=== PATIENT | female | born 1995 | race Caucasian/White ===

== ENCOUNTER → 2018-02-04 13:50 | Outpatient (CLI) | payer OTHER, SELFPAY ==
[2018-02-12 08:29] LABS: HPV APTIMA, High Risk Negative (Negative)
[2018-02-12 08:38] LABS: HPV Reflexed? YES, CHARGE PATIENT
== END ==
PROVIDERS: Visit Provider Obstetrics & Gynecology
DX: Z12.4 Encounter for screening for malignant neoplasm of cervix (principal)
CPT/HCPCS: 87624; 88175; G0145

== ENCOUNTER → 2020-02-28 15:05 | Outpatient (CLI) | payer OTHER, SELFPAY ==
[2020-02-28 16:28] LABS: Absolute Lymphocyte Count 1.51 X10^3/uL (0.83-4.51); Absolute Neutrophil Count 3.8 X10^3/uL (2.0-7.7); Basophil# 0.02 X10^3/uL; Basophil% 0.3 % (0-1); Eosinophil# 0.07 X10^3/uL; Eosinophils% 1.2 % (0-5); Hematocrit 36.5 % (37-47); Hemoglobin 11.8 g/dL (12.0-15.0); Lymphocyte # 1.51 X10^3/ul (4.0); Lymphocyte % 25.6 % (19-41); Mean Corp Hgb Conc 32.3 g/dL (32-36); Mean Corpuscular Hgb 27.3 pg (27.0-32.0); Mean Corpuscular Volume 84.5 fL (81-99); Mean Platelet Vol. 11.5 fl (6.2-12.0); Monocyte# 0.48 X10^3/uL; Monocyte% 8.1 % (0-10); NRBC Flagged by Analyzer 0 % (0-5); Neutrophil # 3.79 X10^3/uL (2.7-7.7); Neutrophil % 64.5 % (47-70); Platelet Count 260 K/mm3 (150-450); RBC Distribution Width CV 13.1 % (11.6-14.6); RBC Distribution Width SD 40.6 fl (35.1-43.9); Red Blood Count 4.32 M/mm3 (4.2-5.4); White Blood Count 5.9 K/mm3 (4.4-11.0)
[2020-02-28 16:54] LABS: Thyroid Stim Hormone (TSH) 2.05 uIU/mL (0.358-3.74)
[2020-02-29 09:18] LABS: HIV - WCH Non-Reactive (Nonreactive); Hepatitis B Surface Antigen Non-Reactive (Nonreactive); Hepatitis C Antibody Non-Reactive (Nonreactive); Rubella IgG Reactive (Nonreactive)
[2020-03-01 02:34] LABS: Prenatal RPR NONREACTIVE (NONREACTIVE)
[2020-03-02 03:07] LABS: Chlamydia By Nucleic Acid AMP Negative (Negative)
[2020-03-02 06:03] LABS: Gonococcus By Nucleic Acid AMP Negative (Negative)
== END ==
PROVIDERS: Visit Provider Obstetrics & Gynecology
DX: Z34.82 Encounter for supervision of other normal pregnancy, second trimester (principal)
CPT/HCPCS: 36415; 84443; 85025; 86703; 86762; 86803; 87340; 87491; 87591

== ENCOUNTER → 2020-06-29 09:41 | Outpatient (CLI) | payer OTHER, SELFPAY ==
[2020-06-29 10:25] LABS: Hematocrit 32.7 % (37-47); Hemoglobin 10.6 g/dL (12.0-15.0); Mean Corp Hgb Conc 32.4 g/dL (32-36); Mean Corpuscular Volume 89.6 fL (81-99); Platelet Count 255 K/mm3 (150-450); RBC Distribution Width CV 13.3 % (11.6-14.6); RBC Distribution Width SD 44.2 fl (35.1-43.9); Red Blood Count 3.65 M/mm3 (4.2-5.4); White Blood Count 7.3 K/mm3 (4.4-11.0)
[2020-06-29 10:30] LABS: Glucose Challenge Gest 1H 50g 57 mg/dL (70-140)
== END ==
PROVIDERS: Visit Provider Obstetrics & Gynecology
DX: Z34.82 Encounter for supervision of other normal pregnancy, second trimester (principal)
CPT/HCPCS: 36415; 82950; 85027

== ENCOUNTER → 2020-09-17 | Outpatient (CLI) | payer OTHER, SELFPAY ==
[2020-09-17 15:19] LABS: Mucous, Urine 0 SEEN /hpf (<or=2+); Red Blood Cells-Urine 0 SEEN /hpf (0-5); Squamous Epithelial Cells - UA 0 SEEN /hpf (5-10)
[2020-09-17 15:40] LABS: Color, Urine Yellow (Yellow); Glucose, Dipstick Normal (Normal); Ketone-Dipstick Negative (Negative); Leukocyte Esterase-Dipstick Negative /ul (Negative); Nitrite-Dipstick Negative (Negative); Occult Blood-Urine Negative /ul (Negative); Protein-Dipstick Negative (Negative); Urine Bilirubin Dipstick Negative (Negative); Urine Clarity Clear (Clear); Urine Urobilinogen Normal (Normal)
[2020-09-17 15:51] LABS: Bacteria 2+ /hpf (None Seen); White Blood Cells 0-5 SEEN /hpf (0-5)
== END | disposition home or self-care (01) ==
LOC: LABSPEC 15:15
PROVIDERS: Visit Provider Obstetrics & Gynecology
DX: N30.00 Acute cystitis without hematuria (principal)
CPT/HCPCS: 81001; 87086

== ENCOUNTER → 2020-09-26 | Outpatient (CLI) | payer OTHER, SELFPAY | END | disposition home or self-care (01) | LOC: LABSPEC 17:04 | PROVIDERS: PCP Family Medicine; Referring Provider Obstetrics & Gynecology; Visit Provider Obstetrics & Gynecology | DX: Z36.85 Encounter for antenatal screening for Streptococcus B (principal) | CPT/HCPCS: 87081 ==

== ENCOUNTER 2020-10-12 09:50 | Inpatient (IN) | payer OTHER, SELFPAY ==
[2020-10-12] VITALS (27 sets, daily range): BP systolic 114–144; BP diastolic 55–74; PULSE 73–130; TEMP 36.2–36.9; O2SAT 91–100; BMI 27.7
--- NOTE | 2020-10-12 10:13 | HP.PCM.OB_ITS ---
HPI - General General Date of Admission: 10/12/20 HPI Narrative VELIA SHAVER, is a 24 F G1 who presents at 39 weeks gestation in labor. [facility] Medical History (Updated 10/12/20 @ 15:[address] Bud Bond MD) Depression Home Medications ferrous sulfate [iron] 325 mg PO DAILY 10/12/20 [History Last Taken 10/11/20 21:00] prenat.vits,waldemar,[id number] [ Vitamin] 1 tab PO DAILY 10/12/20 [History Last Taken 10/11/20 21:00] Allergy/AdvReac Type Severity Reaction Status Date / Time amoxicillin Allergy Rash Verified 10/12/20 07:40 azithromycin [From Zithromax] Allergy Rash Verified 10/12/20 07:41 Penicillins Allergy Rash Verified 10/12/20 07:40 Family History Father Skin cancer Mother Skin cancer Surgical History [place] teeth removed Social History (System 10/02/20 @ 13:10 by Cristi Esparza) Smoking Status: Never smoker History 1 Elective abortions 0 Hx Para 0 Spontaneous abortions 0 Hx # Term Pregnancies 0 Ectopic pregnancies 0 Hx # Pregnancies 0 Multiple births 0 # of living children 1 NST FHR Rate Baby A Baseline: 10 Variability:: Moderate Accelerations:: 15 x 15 Decelerations:: None NST Reactive:: Yes FHR Category:: Category I Uterine Activity:: 2-3/10 Vital Signs Vital Signs Vital Signs: 10/12/20 07:28 Temperature 98.0 F Temperature Source Temporal Pulse Rate 77 Blood Pressure 118/72 BP Systolic 118 BP Diastolic 72 Weight Weight: 66.6 kg Body Mass Index (BMI) 27.7 Physical Exam Const alert, oriented x3 and no apparent distress HEENT normocephalic Resp normal respiratory effort, normal air movement and clear to auscultation bilaterally Cardio regular rate and regular rhythm GI normal to inspection, nondistended, normoactive bowel sounds, soft to palpation, non-tender and non-distended Inspection: gravid Narrative: /-2 per RN exam Labs Labs Labs: Blood Type A POSITIVE Antibody Screen NEGATIVE Hct 39.2 % (37-47) Hgb 12.7 g/dL (12.0-15.0) Rubella IgG Antibody Reactive (Nonreactive) Hep Bs Antigen Non-Reactive (Nonreactive) Neisseria gonorrhoeae DNA (FADI) Negative (Negative) HIV 1&2 Antibody Non-Reactive (Nonreactive) Glucose 1 Hr 50 gm 57 mg/dL (70-140) L ACOG ANTEPARTUM RECORD - HISTORY AND PHYSICAL (10/12/2020) Name: VELIA SHAVER History of this : This is a 24 year old [id number] presents at 39 wks + 0 days gestation. OB Physician: Kellie Hightower MD [place]'s Physician: KIMBERLI ...................................................................... : 1995 Age: 24 Address: [address] [place] [address] Phone: H) [phone] Insurance Carrier: MAURA DUDLEYO [id number] Emergency Contact: JAYLYNADELINA VACAROSSISABELBrian [phone] ...................................................................... Final KANDY: 10/19/20 By Ultrasound: 10 weeks 4 days PARITY: (G-Total Pregnancies P-Fullterm,Premature,Induced AB,Spont AB, Ectopics, Multiple,Living) KANDY CONFIRMATION: By LMP: 01/13/20 Initial Exam: 10/19/20 By First Ultrasound Exam: 10/20/20 Final KANDY: 10/19/20 OB PROBLEM LIST: Allergic to Azithromycin and PCNs! planned, encouraged class Declines genetic and carrier screening First trimester spotting Hx of depression, no past treatment. EPDS on 02/28/2020 = 7. Prefers NOT to have an epidural, but she is not opposed if one is needed Office childbirth class enc. 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 Illicit Drug Use - denies use of street drugs Sexual Activity - single sexual partner and Residence - lives with Place of - [place] Hours Worked - 40 hours per week Spouse-Sig Other Name - Charles Shaver Spouse-Sig Other Occupation - Sign Fabricator Spouse-Sig Other Phone No - [phone] Children Name(s) - [facility] 2018 (non-relative kinship, adopting) PRIOR DELIVERY HISTORY DEL DATE GEST LAB WT LB WT OZ TYPE ANES LABOR TX ANTEPARTUM FLOW CHART VISIT GE RTC FU F F DE U U DATE WK MD WKS HT PN HR M SS BP ED WT DE GL D EF ST __ ____ ___ __ __ ___ __ __ __ ___ __ __ __ ___ __ 21 Sep SHM 1 37 V + + 120/62 sl 152 tr - 3 50 -3 14 Sep SHM 1 36 V + + 122/82 0 150 - - 2+ 50 -3 07 Sep SHM 1 34 V + + 136/74 0 146 ne ne 2+ 50 -3 28 Aug 35 SHM 1 34 V + + 112/74 0 145 - - Aug SHM 2 33 V + + 112/74 0 146 - - Aug JM 2 32 V + + 128/50 - 142 - - August 19 JM 2 30 - + + 122/60 0 140 - - 10 August 17 JM 2 28 - + + 126/76 0 138 ne ne Jul 14 JM 4 24 - + + 130/82 0 132 - - Jun 08 CM 4 U+ + 112/62 0 128 09 May 07 SHM 4 15 + O 120/72 0 125 tr - 05 Apr 01 SHM 5 on US 110/56 0 119 - - ANTEPARTUM NOTE(S): Oct 10 2020: achy, uncomfortable Oct 03 2020: mild pelvic pressure Sep 26 2020: LARC, GBS today Sep 17 2020: Sl burn w/ urination, vaginal pain/soreness Sep 12 2020: cramping and RLP Aug 30 2020: doing well Aug 14 2020: No concerns expressed Jul 30 2020: Jun 29 2020: 1 HR GTT today May 31 2020: May 01 2020: feeling well, declines carrier screening and genetic testing Mar 27 2020: COMPREHENSIVE ANTEPARTUM NOTE(S): Oct 10 2020: More uncomfortable, achy. She is interested in membrane sweep. Reviewed FM, SROM, and labor. LMT Oct 10 2020: Poorly tolerate membrane stripping and exam aborted. Cervix very posterior today. Discussed elective IOL vs. expectant management. Pt opts for t he latter. Oct 03 2020: Velia is here for a PNV at 37 wks and 5 days. Good FM. No edema present. Denies ctx's/ cramping. Mild pelvic pressure. Cervix check today, pt states she was 2.5 cm at last visit. Oct 03 2020: Reviewed GBS neg. Consider stripping membranes at next visit if pt desires. Labor, FM precautions. Sep 26 2020: Velia is here for PNV. GBS today. LARC reviewed and declined. Form signed. States she is getting tired and ready for this baby to come out. Having good FM. No edema present. Urine neg/neg. LSS Sep 26 2020: Cervix MODERATE, MIDPOSITION. GBS obtained. Sep 17 2020: Velia is here for PNV/ problem visit. Pt called in this morning w/ complaints of burning w/ urination and vaginal pressure/ soreness. Pt states burning isn't always present and is very mild. Seemed to have started after she sneezed while urinating the other day. Vaginal pain increases w/ mvmt. Good FM. No edema present. Light headedness occasionally, pt pushing fluids. Long dip reveals tr ketones. Sep 17 2020: Reports external vulvar irritation, swelling and vaginal discomfort with dysuria. wet preop - neg clue/trich/yeast, pH < 4.5 Rx Macrobid for presumed UTI. Complete U/A, Ucx pending. Sep 12 2020: Velia is here for a PNV at 34 weeks. Good FM. No edema at this time. Mild cramping, RLP present. Informed of GBS and LARC at next visit. Sep 12 2020: PTL, ROM, FM precautions. Pt desires unmedicated labor. Discussed r/b intermittent auscultation versus continuous monitoring. Plan for intermittent auscultation. GBS next visit. Discussed PPBC - vasectomy planned. Aug 30 2020: 32wk, no complaints. JM Aug 18 2020: Call Msg from 7:10 PM last evening. Velia calling @ 31 wks reporting a dull pain below where ribs meet in the front since apprx 4 pm. Hx acid reflux, not taking anything for this. Had [employer] for supper. Ache started prior to eating [employer]. Reporting good FM. No pain in abdomen. NO other adverse Sx. Advised given location, try taking TUMS as she has this on hand. Baby may be pushing on stomach, c Aug 14 2020: Velia is here for a PNV at 30 wks. Good FM. No edema present. Denies concerns/ questions at this time. Mild back pain present. MK Aug 14 2020: 30wk, no complaints. JM Jul 30 2020: Velia is here for PNV. Feeling really well with good FM. No concerns today. No edema noted. Urine neg/neg. LSS Jul 30 2020: 28wk, 1hr GTT wnl. JM Jun 29 2020: Velia is here for a PNV at 24 wk's 0 days. Good FM. No edema present. Pt having 1 HR GTT drawn today, A+ blood type. No concerns or questions expressed at this time. MK Jun 29 2020: 24wk, 1hr GTT today. JM May 31 2020: Comprehensive US today. Feeling FM. 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 kb May 31 2020: 19/6w visit. Anatomy wnl today. F/u 4w with glucola CM May 01 2020: Nausea resolved. Declines aneuploidy and carrier screening. c/o constipation - discussed increasing fiber, hydration, magnesium citrate and stool softener. Anatomy scan next visit. Mar 30 2020: TELEHEALTH NOB VISIT, DURATION 50 MINUTES. Velia is a 24 year old with an KANDY of 10/19/2020, current GA is 11 w 0 d. She states that she has been feeling mild nausea (mostly when she has an empty stomach), and that she has not vomited for awhile. Reviewed measures that may help minimize nausea, including small frequent meals with protein included throughout the day, and adequate water hydra Mar 27 2020: Velia is her for 10 + 4 PNV. Reports she is feeling well with no complaints. No edema present. She is taking vitamins. She is staying physically active. Medications and allergies reviewed. LJW Mar 27 2020: A pos, Rubella immune. labs wnl. US today AGA, KANDY 10/19/20. Nausea resolved. Notes scant dark brown blood following intercourse. Discussed abstaining to her preference to avoid alarm, however, likely old and no evidence of bleed on US. Pt to call if red bleeding. REVIEW OF SYSTEMS: GENERAL - Denies fever, or chills SKIN - Denies rash, new skin lesions, or change in moles EYES - Denies blurred vision, or change in visual acuity EARS - Denies ear pain, or difficulty hearing NOSE - Denies nasal congestion, discharge, or bleeding MOUTH - Denies sore throat, or difficulty swallowing NECK - Denies pain or swelling RESPIRATORY - Denies shortness of breath, cough, wheezing CARDIOVASCULAR - Denies palpitations, chest pain, orthopnea, PND, peripheral edema, syncope or claudication GASTROINTESTINAL - Denies nausea, vomiting, diarrhea, constipation, Denies abdominal pain, melena and or bright red blood GENITOURINARY - Denies dysuria, frequency of urination, urgency, or hesitancy MUSCULOSKELETAL - Denies joint or muscle pain, or back pain NEUROLOGICAL - Denies localized numbness, weakness, or tingling PSYCHIATRIC - Denies depression, anxiety, substance abuse or suicide attempts ENDOCRINE - Denies heat or cold intolerance, weight loss or gain, increasing thirst HEMATO-IMMUNOLOGIC - Denies easy bruising, bleeding, oral ulcerations or recurrent infections GENETICS SCREENING: Age 35+ years: No Thalassemia: No Neural Tube Defect: No Down Syndrome: No ROSALINA-SACHS: No Sickle Cell Disease: No Hemophilia: No Musc. Dystrophy: No Cystic Fibrosis: No-declines screening Dante Chorea: No Mental Retardation: No Fragile X: No Other genetic: No Other defects: No SABs/still births: No Drugs since LMP: No INFECTION HISTORY: High risk AIDS: No High risk Hepatitis: No Exposed to TB: No Exposed to Herpes: No Rash/viral illness since LMP: No History of STD: No MENSTRUAL HISTORY: *Menses Amount/Duration: 3-4 daysMenses Regularity: regularFrequency: monthlyMenarche (Age Onset): 9* PAST SUMMARY: PARITY: 1. Total Pregnancies............ 1 2. Full Term Pregnancies........ 0 3. Premature.................... 0 4. Abortions - Induced.......... 0 5. Abortions - Spontaneous...... 0 6. Ectopics..................... 0 7. Multiple Births.............. 0 8. Living Children.............. 0 PHYSICAL EXAMINATION General Appearence: 24 yo female in no acute distress Vital Signs: AF, VSS Heart: RRR without rubs or gallops Lungs: CTA x 2 Breasts: deferred Abdomen: gravid Pelvis: Cervix: Presentation: cephalic Station: Fetus: Size: AGA Movement: present Heart: present LAB TEST(S) ORDERED SINCE:01/23/20 03/02/2020 CHLAMYDIA/GC FADI APTIMA 03/01/2020 RPR 02/29/2020 RUBELLA IGG 02/29/2020 HIV - WCH 02/29/2020 HEPATITIS C ANTIBODY 02/29/2020 HEPATITIS B SURFACE ANTIGEN 02/28/2020 URINE DRUG SCREEN (VISTA) 02/28/2020 THYROID STIM HORMONE (TSH) 02/28/2020 T AND S-NO CHARGE W/PNP 02/28/2020 CBC W/DIFF, AUTOMATED 09/29/2020 RULE OUT BETA STREP (GRP. B) 09/20/2020 URINE CULTURE 09/17/2020 URINALYSIS, COMPLETE 06/29/2020 GLUCOSE CHALLENGE GEST 1H 50G 06/29/2020 CBC-COMPLETE BLOOD CNT NO DIFF == ==== Order Observation Description Value Ref_Range A* Site == ==== RULE OUT BETA S NOTE WELLS URINE CULTURE NOTE WELLS URINALYSIS, COM NOTE WELLS URINALYSIS, COM WBC 0-5 SEEN /hpf 0-5 ML URINALYSIS, COM RBC 0 SEEN /hpf 0-5 ML URINALYSIS, COM EPI,SQUAMOUS 0 SEEN /hpf 5-10 ML URINALYSIS, COM BACTERIA 2+ /hpf None Seen ML URINALYSIS, COM MUCUS 0 SEEN /hpf <or=2+ ML GLUCOSE CHALLEN NOTE WELLS GLUCOSE CHALLEN GLU GEST 50G 1H 57 mg/dL 70-140 L ML CBC-COMPLETE BL NOTE WELLS CBC-COMPLETE BL WBC 7.3 K/mm3 4.4-11.0 ML CBC-COMPLETE BL RBC 3.65 M/mm3 4.2-5.4 L ML CBC-COMPLETE BL HGB 10.6 g/dL 12.0-15.0 L ML CBC-COMPLETE BL HCT 32.7 37-47 L ML CBC-COMPLETE BL MCV 89.6 fL 81-99 ML CBC-COMPLETE BL MCH 29.0 pg 27.0-32.0 ML CBC-COMPLETE BL MCHC 32.4 g/dL 32-36 ML CBC-COMPLETE BL RDW CV 13.3 11.6-14.6 ML CBC-COMPLETE BL RDW SD 44.2 fl 35.1-43.9 H ML CBC-COMPLETE BL PLT 255 K/mm3 150-450 ML CBC-COMPLETE BL MPV 11.0 fl 6.2-12.0 ML CHLAMYDIA/GC NA NOTE WELLS CHLAMYDIA/GC NA CHLAMY,NUC ACID Negative Negative LC CHLAMYDIA/GC NA GC BY NUC ACID Negative Negative LC Performed at: =[facility] [id number] Jig Bore Operator: Chio Suarez MD, Phone: [phone] RPR NOTE WELLS RPR RPR NONREACTIVE NONREACTIVE ML HEPATITIS C ANT NOTE WELLS HEPATITIS C ANT HEPATITIS C AB Non-Reactive Nonreactive ML Non Reactive: < 0.8 Equivocal: >/= 0.8 to < 1.0 Reactive: >/= 1.0 The CDC recommends that a reactive/equivocal HCV antibody result be followed up by the HCV Nucleic Acid Amplification test ([id number]) HEPATITIS B FRANKY NOTE WELLS HEPATITIS B FRANKY HEPB SURFACE AG Non-Reactive Nonreactive ML HIV - WCH NOTE WELLS HIV - WCH HIV - WCH Non-Reactive Nonreactive ML RUBELLA IGG NOTE WELLS RUBELLA IGG RUBELLA IGG Reactive Nonreactive ML Antibody Results Interpretation of Immune Status Non Reactive Presumed Non-Immune Equivocal Equivocal Reactive Presumed Immune Reason for Type AND Screen/Red Cells: Surgery? [facility]~[address] [place], [address]~ T AND BLOOD TYPE GEL A POSITIVE N ML T AND AB SCREEN GEL NEGATIVE N ML THYROID STIM HO NOTE WELLS THYROID STIM HO TSH 2.05 uIU/mL 0.358-3.74 ML CBC W/DIFF, AUT NOTE WELLS CBC W/DIFF, AUT WBC 5.9 K/mm3 4.4-11.0 ML CBC W/DIFF, AUT RBC 4.32 M/mm3 4.2-5.4 ML CBC W/DIFF, AUT HGB 11.8 g/dL 12.0-15.0 L ML CBC W/DIFF, AUT HCT 36.5 % 37-47 L ML CBC W/DIFF, AUT MCV 84.5 fL 81-99 ML CBC W/DIFF, AUT MCH 27.3 pg 27.0-32.0 ML CBC W/DIFF, AUT MCHC 32.3 g/dL 32-36 ML CBC W/DIFF, AUT RDW CV 13.1 % 11.6-14.6 ML CBC W/DIFF, AUT RDW SD 40.6 fl 35.1-43.9 ML CBC W/DIFF, AUT PLT 260 K/mm3 150-450 ML CBC W/DIFF, AUT MPV 11.5 fl 6.2-12.0 ML CBC W/DIFF, AUT NEUT% 64.5 % 47-70 ML CBC W/DIFF, AUT LY% 25.6 % 19-41 ML CBC W/DIFF, AUT MONO% 8.1 % 0-10 ML CBC W/DIFF, AUT EO% 1.2 % 0-5 ML CBC W/DIFF, AUT BASO% 0.3 % 0-1 ML CBC W/DIFF, AUT IM GRAN % 0.300 % 0.0-0.9 ML IG% - Immature Granulocytes (promyelocytes, myelocytes and metamyelocytes) > 1% indicates that a LEFT SHIFT is Present. CBC W/DIFF, AUT ABSOLUTE NEUT 3.8 X10 3/uL 2.0-7.7 ML CBC W/DIFF, AUT ABSOLUTE LYMPH 1.51 X10 3/uL 0.83-4.51 ML CBC W/DIFF, AUT NRBC, FLAGGED 0 % 0-5 ML URINE DRUG SCRE NOTE WELLS URINE DRUG SCRE TO BE CONFIRMED ML CONFIRMATORY TESTING FOR ALL POSITIVE URINE DRUG SCREEN RESULTS WILL ONLY BE SENT OUT UPON PHYSICIAN ORDER. VISTA Urine Drug Screen methods provide only preliminary analytical test results. A more specific alternate chemical method must be used in order to obtain a confirmed analytical result. Gas chromatography/mass spectrometery (GC/MS) is the preferred confirmatory method. Clinical consideration and professional judgement should be applied to any drug of abuse test result, particularly when preliminary positive results are used. URINE TCA TESTING MUST BE ORDERED SEPARATELY. USE TEST MNEMONIC: UTCA Group B Beta Streptococcus is not isolated. Culture exhibits no growth. Assessment & Plan (1) 39 weeks gestation of : PLAN: Admit in labor Expectant management
[2020-10-12 10:44] LABS: Absolute Lymphocyte Count 1.62 X10^3/uL (0.83-4.51); Absolute Neutrophil Count 8.8 X10^3/uL (2.0-7.7); Basophil# 0.03 X10^3/uL; Basophil% 0.3 % (0-1); Eosinophil# 0.03 X10^3/uL; Eosinophils% 0.3 % (0-5); Hematocrit 39.2 % (37-47); Hemoglobin 12.7 g/dL (12.0-15.0); Lymphocyte # 1.62 X10^3/ul (0.83-4.51); Lymphocyte % 14.9 % (19-41); Mean Corp Hgb Conc 32.4 g/dL (32-36); Mean Corpuscular Hgb 28.5 pg (27.0-32.0); Mean Corpuscular Volume 88.1 fL (81-99); Monocyte# 0.42 X10^3/uL; Monocyte% 3.9 % (0-10); NRBC Flagged by Analyzer 0 % (0-5); Neutrophil # 8.75 X10^3/uL (2.7-7.7); Neutrophil % 80.2 % (47-70); Platelet Count 200 K/mm3 (150-450); RBC Distribution Width CV 13.2 % (11.6-14.6); RBC Distribution Width SD 42.8 fl (35.1-43.9); Red Blood Count 4.45 M/mm3 (4.2-5.4); White Blood Count 10.9 K/mm3 (4.4-11.0)
[2020-10-12] MEDS: 0.9% Saline Lock 10 ML Syringe IV (10:48)
[2020-10-12] MEDS: Lactated Ringers 1,000 ML 200 ML IV (14:30)
--- NOTE | 2020-10-12 15:51 | PN.OBGYN_ITS ---
Subjective Subjective Patient currently going natural, uncomfortable with contractions Objective Data Objective Data Vital Signs: Vital Signs Temp Pulse BP Pulse Ox 97.8 F 88 125/70 H 98 10/12/20 14:56 10/12/20 14:56 10/12/20 14:56 10/12/20 14:56 Weight: 146 lb 13.246 oz Body Mass Index (BMI) 27.7 Intake & Output: Intake and Output for Last 24 Hours 10/10/20 10/11/20 10/12/20 23:59 23:59 23:59 Intake Total 950 / 950 Balance 950 / 950 Lab / Micro Data Result Diagrams: 10/12/20 10:30 Labs: Laboratory Results - last 24 hr 10/12/20 10:30: WBC 10.9, RBC 4.45, Hgb 12.7, Hct 39.2, MCV 88.1, MCH 28.5, MCHC 32.4, RDW Std Deviation 42.8, RDW Coeff of [place] 13.2, Plt Count 200, MPV 12.0, Immature Gran % (Auto) 0.400, Neut % (Auto) 80.2 H, Lymph % (Auto) 14.9 L, [place] % (Auto) 3.9, Eos % (Auto) 0.3, Baso % (Auto) 0.3, Absolute Neuts (auto) 8.8 H, Absolute Lymphs (auto) 1.62, Nucleated RBC % 0 10/12/20 10:30: Blood Type A POSITIVE, Antibody Screen NEGATIVE Micro: Microbiology 10/12/20 10:35 Mucosa - Nose SARS-CoV-2 Antigen (Rapid) - Final Physical Exam Const alert, oriented x3 and average body habitus HEENT normocephalic and moist oral mucous membranes Head and Scalp: atraumatic Neck full ROM Narrative: Cervical exam 10/100/+1. AROM thin meconium Extremity normal to inspection, full ROM and no clubbing, cyanosis or edema Psych mental status grossly normal, affect normal, speech normal and activity/motor behavior normal Assessment & Plan (1) : PLAN: Patient seen and examined. Going natural, uncomfortable with contractions. AROM thin meconium. Educated on pushing techniques. To continue pushing
[2020-10-12] MEDS: Oxytocin 30 units/NS 500 ml 30 UNITS/500 ML IV.SOLN 334 UNITS IV (17:44)
--- NOTE | 2020-10-12 18:42 | EX.PCM.OBRPT ---
Vaginal Delivery Findings Description of Procedure: Normal spontaneous vaginal delivery of a viable female infant, vertex SANDI. Head and shoulders delivered with ease. Cord cut and clamped. Baby handed off to mom. Placenta delivered via cord traction and fundal massage. Second-degree midline perineal laceration noted and repaired in typical fashion. EBL 300 cc Apgars 8/9
[2020-10-12] MEDS: Ibuprofen 600 MG Tablet PO (19:26)
[2020-10-12] MEDS: Benzocaine/Lanolin/Aloe Vera 1 SPRAY EACH TOPICAL (19:33)
[2020-10-12] MEDS: Acetaminophen 500 MG Tablet 1000 MG PO (20:15)
[2020-10-13 01:15] VITALS: BP 118/62; PULSE 90; RESP 18; TEMP 36.4
[2020-10-13 05:18] VITALS: BP 123/84; PULSE 83; RESP 16; TEMP 36.3
[2020-10-13] MEDS: Ibuprofen 600 MG Tablet PO (06:00)
[2020-10-13] MEDS: Senna/Docusate Sodium 1 Tablet PO (06:01)
[2020-10-13 08:45] VITALS: BP 109/55; PULSE 87; RESP 16; TEMP 36.4
--- NOTE | 2020-10-13 11:13 | PCM.DC ---
Discharge Instructions Diet Discharge Diet: No restrictions Activity Discharge Activity: Return to Normal Activity, May Drive and May Shower May resume sexual activity in: 4-6 weeks Weight Bearing Status: Weight bearing as tolerated Dressing / Incision Call your doctor if your incision/area has: Continuous Slow Oozing and Foul Smelling Discharge Call your doctor if you observe: Fever of 101 or Higher, Shortness of breath and Chest pain Follow Up Care Please Follow Up With: Bud Bond MD When: 2-week telehealth visit, 4 to 6-week visit Test Results: Test results from this visit will be discussed in further detail at your follow-up appointment, if applicable. Discharge Plan Admission Admit Date/Time: 10/12/20 09:50 Attending Provider: Bud Bond Primary Care Provider: Chris Smith Discharge Orders/Prescriptions Prescriptions: No Action ferrous sulfate [iron] 325 mg (65 mg iron) Tablet 325 mg PO DAILY RF: 0 Vitamin Tablet 1 tab PO DAILY RF: 0
--- NOTE | 2020-10-13 11:14 | PN.OBGYN_ITS ---
Subjective Subjective No overnight complaints. Pain well controlled. Objective Data Objective Data Vital Signs: Vital Signs Temp Pulse Resp BP Pulse Ox 97.5 F L 87 16 109/55 L 99 10/13/20 08:45 10/13/20 08:45 10/13/20 08:45 10/13/20 08:45 10/12/20 19:08 Oxygen Delivery Method Room Air Weight: 146 lb 13.246 oz Body Mass Index (BMI) 27.7 Intake & Output: Intake and Output for Last 24 Hours 10/11/20 10/12/20 10/13/20 23:59 23:59 23:59 Intake Total 2095. / 2095. Balance 2095. / Lab / Micro Data Result Diagrams: 10/12/20 10:30 Labs: Laboratory Results - last 24 hr 10/12/20 10:30: Blood Type A POSITIVE, Antibody Screen NEGATIVE Micro: Microbiology 10/12/20 10:35 Mucosa - Nose SARS-CoV-2 Antigen (Rapid) - Final Physical Exam Const alert, oriented x3, no apparent distress, average body habitus, healthy appearing and well nourished HEENT normocephalic and moist oral mucous membranes Head and Scalp: atraumatic Neck full ROM Resp normal respiratory effort, no retractions and no use of accessory muscles GI normal to inspection, nondistended, normoactive bowel sounds GI Narrative: Uterus firm and below umbilicus Extremity normal to inspection, full ROM and no clubbing, cyanosis or edema Psych mental status grossly normal, affect normal, speech normal and activity/motor behavior normal Assessment & Plan (1) : PLAN: day 1. No complaints. Breast-feeding. Educated on perineal care. Okay to discharge home if okay with administrative aide
--- NOTE | 2020-10-13 12:36 | CASEMGMT ---
SW Note Referral Source: prosthetic assistant Reason: Patient is leaving AMA Mom: Trenton Collins
[2020-10-13 13:00] VITALS: BP 121/64; PULSE 91; RESP 16; TEMP 36.6
[2020-10-13 17:00] VITALS: BP 115/65; PULSE 88; RESP 16; TEMP 36.8
--- NOTE | 2020-10-17 18:18 | NURSING ---
no answer on follow up phone call left voicemail
== END 2020-10-13 18:45 | disposition home or self-care (01) | DRG 807 ==
LOC: WPOUT 09:53 → WP 10:51
PROVIDERS: Admitting Provider Obstetrics & Gynecology; PCP Family Medicine; Referring Provider Obstetrics & Gynecology; Visit Provider Obstetrics & Gynecology
DX: O77.0 Labor and delivery complicated by meconium in amniotic fluid (principal); Z37.0 Single live birth; O70.1 Second degree perineal laceration during delivery; Z3A.39 39 weeks gestation of pregnancy
CPT/HCPCS: 59025; 59050; 85025; 86850; 86900; 86901; 87426; 99218; J7120; A4216; G0378

== ENCOUNTER 2021-04-23 13:21 | Outpatient (CLI) | payer OTHER, SELFPAY ==
[2021-04-23 14:28] LABS: Color, Urine Yellow (Yellow); Glucose, Dipstick Normal (Normal); Ketone-Dipstick Negative (Negative); Leukocyte Esterase-Dipstick Negative /ul (Negative); Nitrite-Dipstick Negative (Negative); Occult Blood-Urine Negative /ul (Negative); Protein-Dipstick Negative (Negative); Specific Gravity, Urine 1.015 (1.002-1.030); Urine Bilirubin Dipstick Negative (Negative); Urine Clarity Clear (Clear); Urine Urobilinogen Normal (Normal); Urine pH 6.5 (5.0 - 8.0)
[2021-04-23 14:32] LABS: Absolute Lymphocyte Count 2.52 X10^3/uL (0.83-4.51); Absolute Neutrophil Count 5.5 X10^3/uL (2.0-7.7); Basophil# 0.04 X10^3/uL; Basophil% 0.5 % (0-1); Eosinophil# 0.06 X10^3/uL; Eosinophils% 0.7 % (0-5); Hematocrit 38.5 % (37-47); Hemoglobin 12.9 g/dL (12.0-15.0); Lymphocyte # 2.52 X10^3/ul (0.83-4.51); Lymphocyte % 29.4 % (19-41); Mean Corp Hgb Conc 33.5 g/dL (32-36); Mean Corpuscular Hgb 27.9 pg (27.0-32.0); Mean Corpuscular Volume 83.2 fL (81-99); Mean Platelet Vol. 11.5 fl (6.2-12.0); Monocyte# 0.42 X10^3/uL; Monocyte% 4.9 % (0-10); NRBC Flagged by Analyzer 0 % (0-5); Neutrophil # 5.51 X10^3/uL (2.7-7.7); Neutrophil % 64.3 % (47-70); Platelet Count 260 K/mm3 (150-450); RBC Distribution Width SD 42.3 fl (35.1-43.9); Red Blood Count 4.63 M/mm3 (4.2-5.4); White Blood Count 8.6 K/mm3 (4.4-11.0)
[2021-04-23 14:40] LABS: Amphetamine Urine VISTA NEGATIVE (<1000 ng/mL); Barbiturate Urine VISTA NEGATIVE (< 200 ng/mL); Benzodiazepine Urine VISTA NEGATIVE (< 200 ng/mL); Cocaine Urine VISTA NEGATIVE (< 300 ng/mL); Ecstacy Urine VISTA NEGATIVE (< 500 ng/mL); Methadone Urine VISTA NEGATIVE (< 300 ng/mL); PCP Urine VISTA NEGATIVE (< 25 ng/mL); THC Urine VISTA NEGATIVE (< 50 ng/mL); Vista UDS pH Range 6
[2021-04-23 14:48] LABS: Thyroid Stim Hormone (TSH) 1.49 uIU/mL (0.358-3.74)
[2021-04-23 15:40] LABS: HIV - WCH Non-Reactive (Nonreactive); Hepatitis B Surface Antigen Non-Reactive (Nonreactive); Hepatitis C Antibody Non-Reactive (Nonreactive); Rubella IgG Reactive (Nonreactive); Syphilis Antibodies Non-reactive
[2021-04-26 00:06] LABS: Chlamydia By Nucleic Acid AMP Negative (Negative)
[2021-04-26 14:11] LABS: Gonococcus By Nucleic Acid AMP Negative (Negative)
[2021-04-27 12:29] LABS: HPV Reflexed? NOT INDICATED
== END 2021-04-23 23:59 | disposition short-term general hospital (02) ==
LOC: WOBLAB 13:27
PROVIDERS: PCP Family Medicine; Visit Provider Obstetrics & Gynecology
DX: Z34.81 Encounter for supervision of other normal pregnancy, first trimester (principal); Z12.4 Encounter for screening for malignant neoplasm of cervix; Z11.3 Encounter for screening for infections with a predominantly sexual mode of transmission
CPT/HCPCS: 80307; 81002; 84443; 85025; 86703; 86762; 86780; 86803; 87086; 87088; 87340; 87491; 87591; 88175; G0145

== ENCOUNTER → 2021-08-16 | Outpatient (CLI) | payer OTHER, SELFPAY ==
[2021-08-16 09:50] LABS: Hematocrit 34.1 % (37-47); Mean Corp Hgb Conc 32.3 g/dL (32-36); Mean Corpuscular Hgb 28.6 pg (27.0-32.0); Mean Corpuscular Volume 88.8 fL (81-99); Mean Platelet Vol. 10.8 fl (6.2-12.0); Platelet Count 231 K/mm3 (150-450); RBC Distribution Width CV 13.2 % (11.6-14.6); RBC Distribution Width SD 43.2 fl (35.1-43.9); Red Blood Count 3.84 M/mm3 (4.2-5.4); White Blood Count 7.2 K/mm3 (4.4-11.0)
[2021-08-16 09:53] LABS: Glucose Challenge Gest 1H 50g 80 mg/dL (70-140)
== END | disposition home or self-care (01) ==
LOC: WOBLAB 09:13
PROVIDERS: PCP Family Medicine; Visit Provider Obstetrics & Gynecology
DX: Z34.82 Encounter for supervision of other normal pregnancy, second trimester (principal)
CPT/HCPCS: 36415; 82950; 85027

== ENCOUNTER → 2021-11-06 | Outpatient (CLI) | payer OTHER, SELFPAY | END | disposition home or self-care (01) | LOC: LABSPEC 10:03 | PROVIDERS: PCP Family Medicine; Visit Provider Obstetrics & Gynecology | DX: Z36.85 Encounter for antenatal screening for Streptococcus B (principal) | CPT/HCPCS: 87081 ==

== ENCOUNTER 2021-11-20 16:05 | Outpatient (CLI) | payer OTHER, SELFPAY ==
[2021-11-20 16:10] VITALS: BMI 29.3
[2021-11-20 16:13] VITALS: BP 124/73; PULSE 89
[2021-11-20 16:50] VITALS: BP 125/75; PULSE 91
[2021-11-20 16:52] VITALS: BP 124/73; PULSE 99
[2021-11-20 17:00] VITALS: BP 121/72; PULSE 89
[2021-11-20 17:25] LABS: Mucous, Urine 0 SEEN /hpf (<or=2+); Red Blood Cells-Urine 0 SEEN /hpf (0-5); White Blood Cells 0 SEEN /hpf (0-5)
[2021-11-20 17:28] LABS: Hematocrit 33.6 % (37-47); Mean Corp Hgb Conc 32.7 g/dL (32-36); Mean Corpuscular Hgb 27.8 pg (27.0-32.0); Mean Corpuscular Volume 85.1 fL (81-99); Mean Platelet Vol. 12.8 fl (6.2-12.0); Platelet Count 182 K/mm3 (150-450); RBC Distribution Width CV 13.8 % (11.6-14.6); RBC Distribution Width SD 42.9 fl (35.1-43.9); Red Blood Count 3.95 M/mm3 (4.2-5.4); White Blood Count 6.9 K/mm3 (4.4-11.0)
[2021-11-20 17:29] LABS: Color, Urine Straw (Yellow); Glucose, Dipstick Normal (Normal); Ketone-Dipstick Negative (Negative); Leukocyte Esterase-Dipstick Negative /ul (Negative); Nitrite-Dipstick Negative (Negative); Occult Blood-Urine Negative /ul (Negative); Protein-Dipstick Negative (Negative); Specific Gravity, Urine 1.005 (1.002-1.030); Urine Bilirubin Dipstick Negative (Negative); Urine Clarity Clear (Clear); Urine Urobilinogen Normal (Normal)
[2021-11-20 17:37] VITALS: BP 127/75; PULSE 83
[2021-11-20 17:43] LABS: Bacteria RARE /hpf (None Seen); Squamous Epithelial Cells - UA 0-5 SEEN /hpf (5-10)
[2021-11-20 17:45] LABS: ALB/GLOB Ratio 0.6 RATIO (0.9-2.4); AST(SGOT) 18 U/L (15-37); Alanine Aminotransfer ALT/SGPT 13 U/L (13-56); Albumin, Serum 2.4 g/dL (3.2-5.0); Alkaline Phosphatase 166 U/L (45-117); Anion Gap 9 (5-15); BUN 11 mg/dL (7-18); BUN/Creat Ratio 17.9 RATIO (10-20); Calcium,Total 8.9 mg/dL (8.5-10.1); Chloride 108 mmol/L (98-107); Creatinine, Serum 0.61 mg/dL (0.55-1.02); EST Glomerular Filtration Rate 123 mL/min (>60); Est Glom Filt Rate - Afr Amer 149 mL/min (>60); Estimated Creatinine Clearance 104.54 ml/min; Globulin 4.1 g/dL (2.2-4.2); Glucose 83 mg/dL (74-106); LDH 186 U/L (84-246); Potassium 3.5 mmol/L (3.5-5.1); Protein, Total 6.5 g/dL (6.4-8.2); Sodium Level 138 mmol/L (136-145)
[2021-11-20 18:29] VITALS: TEMP 37.2
[2021-11-20 19:09] LABS: Protein, Urine (Random) < 6.0 mg/dL (<11.9)
--- NOTE | 2021-11-20 19:13 | NURSING ---
lab contacted for protein/creatinine ration results. Results were provided over the phone as Total protein <5, urine creatinie 18.2, P/C ratio not calculable per lab staff.
--- NOTE | 2021-11-20 19:36 | OB.TRI.HP_ITS ---
HPI - General General Date of Admission: 11/20/21 HPI Narrative VELIA MCKEON, is a 25 F who presents elevated blood pressures in office [facility] Medical History (Updated 10/12/20 @ 15:[address] Bud Bond MD) Depression Home Medications prenat.vits,waldemar,[id number] 1 tab PO DAILY Check with primary doctor 10/12/20 [History Last Taken 1 Day Ago ~11/19/21] Allergy/AdvReac Type Severity Reaction Status Date / Time amoxicillin Allergy Rash Verified 10/12/20 07:40 azithromycin [From Zithromax] Allergy Rash Verified 10/12/20 07:41 Penicillins Allergy Rash Verified 10/12/20 07:40 Family History Father Skin cancer Mother Skin cancer Surgical History [place] teeth removed Social History (System 10/02/20 @ 13:10 by Cristi Esparza) Smoking Status: Never smoker History 1 Elective abortions 0 Hx Para 1 Spontaneous abortions 0 Hx # Term Pregnancies 0 Ectopic pregnancies 0 Hx # Pregnancies 0 Multiple births 0 # of living children 1 Physical Exam Const alert, oriented x3, no apparent distress, average body habitus, no limitations and healthy appearing HEENT moist oral mucous membranes Eyes PERRL Neck full ROM GI GI Narrative: Soft, nontender, gravid Extremity normal to inspection, full ROM and no clubbing, cyanosis or edema Neuro moves all extremities and no focal motor deficits Psych mental status grossly normal, affect normal, speech normal and activity/motor behavior normal NST FHR Rate Baby A Baseline: 120 Variability:: Moderate Accelerations:: 15 x 15 Decelerations:: None NST Reactive:: Yes Uterine Activity:: Quiet Assessment & Plan (1) : PLAN: Patient arrived from office with elevated blood pressures. Arrives to OB triage asymptomatic, denies headache, vision changes, chest pain, shortness of breath, nausea vomiting, lower quadrant pain. Patient states good movement. Blood pressures here in triage within normal limits. HELLP labs with in normal limits. Educated patient on findings discussed induction of labor at term versus DC home with benefits alternatives. Patient desires DC home and follow-up for blood pressure check tomorrow. Based on asymptomatic and blood pressures over prolonged period of time stable along with reassuring heart tones, reasonable to DC home with at home monitoring and repeat blood pressure in office.
[2021-11-20 20:04] LABS: LDH 186 U/L (84-246)
[2021-11-20 21:13] LABS: AST(SGOT) 22 U/L (15-37); Alanine Aminotransfer ALT/SGPT 13 U/L (13-56); Creatinine, Serum 0.67 mg/dL (0.55-1.02); EST Glomerular Filtration Rate 112 mL/min (>60); Est Glom Filt Rate - Afr Amer 136 mL/min (>60); Estimated Creatinine Clearance 95.17 ml/min; Uric Acid 5.2 mg/dL (2.6-6.0)
== END 2021-11-20 20:00 | disposition home or self-care (01) ==
LOC: WPOUT 11-21 15:21 → WP 11-21 15:21
PROVIDERS: PCP Family Medicine; Visit Provider Obstetrics & Gynecology
DX: O26.899 Other specified pregnancy related conditions, unspecified trimester (principal); R03.0 Elevated blood-pressure reading, without diagnosis of hypertension; Z3A.00 Weeks of gestation of pregnancy not specified
CPT/HCPCS: 36415; 59025; 59050; 80053; 81001; 82565; 82570; 83615; 84156; 84450; 84460; 84550; 85027; 99218; G0378

== ENCOUNTER 2021-12-01 05:25 | Inpatient (IN) | payer OTHER, SELFPAY ==
[2021-12-01] VITALS (43 sets, daily range): BP systolic 118–178; BP diastolic 58–79; PULSE 83–100; RESP 16; TEMP 36.1–36.8; O2SAT 96–100; BMI 29.5
[2021-12-01 04:53] LABS: ROM Internal Control Test YES-OK TO RESULT pt. (Internal QC); ROM Patient Test Negative (Negative)
[2021-12-01 05:58] LABS: Absolute Lymphocyte Count 2.43 X10^3/uL (0.83-4.51); Basophil# 0.04 X10^3/uL; Basophil% 0.4 % (0-1); Eosinophil# 0.09 X10^3/uL; Eosinophils% 0.9 % (0-5); Hematocrit 35.7 % (37-47); Hemoglobin 11.7 g/dL (12.0-15.0); Lymphocyte # 2.43 X10^3/ul (0.83-4.51); Lymphocyte % 23.9 % (19-41); Mean Corp Hgb Conc 32.8 g/dL (32-36); Mean Corpuscular Hgb 27.7 pg (27.0-32.0); Mean Corpuscular Volume 84.4 fL (81-99); Mean Platelet Vol. 12.2 fl (6.2-12.0); Monocyte# 0.56 X10^3/uL; Monocyte% 5.5 % (0-10); NRBC Flagged by Analyzer 0 % (0-5); Neutrophil # 7.01 X10^3/uL (2.7-7.7); Platelet Count 185 K/mm3 (150-450); RBC Distribution Width CV 13.8 % (11.6-14.6); Red Blood Count 4.23 M/mm3 (4.2-5.4); White Blood Count 10.2 K/mm3 (4.4-11.0)
[2021-12-01] MEDS: 0.9% Saline Lock 10 ML Syringe IV ×2 (06:07→09:48)
--- NOTE | 2021-12-01 08:22 | PCM.HP.BLA ---
History and Physical Date of Admission: 12/01/21 HPI: G2, P1 at 40/5 days, KANDY 11/26/2021 by LMP, admitted in labor. Reports contractions. Denies leaking of fluid, vaginal bleeding. Reports movement. Denies headache, vision changes, chest pain or shortness of breath, nausea or vomiting, diarrhea constipation, fevers or chills. uncomplicated DIVISION HEAD history: G1: 39-week G2: Current Medical history: Denies Surgical history: 1. [place] tooth extraction Family history: Noncontributory. No history of blood clots or bleeding disorders. Medications: vitamin Allergies: 1. Penicillins 2. Azithromycin both causing rash Social history: Denies tobacco, alcohol, drug use Review of system: Negative otherwise stated above Physical exam: Blood pressure 133/76, temp 96.9 ?F, pulse 85, oxygen saturation 100% on room air General: In no acute distress HEENT: Normocephalic/atraumatic, PERRLA Cardiorespiratory: No increased effort Abdomen: Soft, nontender, gravid Extremities: No edema Neurologic: No focal deficits, cranial nerves II through XII grossly intact musculoskeletal: Strength 5 out of 5 throughout all extremities Cervical exam: 9/80/0 station, AROM clear fluid NST on admission reactive heart rate: 130/mod brandin/+accel/no decel [place]: not tracing Now doing intermittent auscultation panel: A positive GBS negative on 11/06 Syphilis negative Hepatitis B/hepatitis C both negative HIV negative Rubella immune Admission labs within normal limits Assessment/plan: G2, P1 at 40/5 days, KANDY 11/26/2021 by LMP, admitted in labor. uncomplicated. ?Admit to labor and delivery ?GBS negative -Plans no epidural. -Continued intermittent auscultation.
[2021-12-01] MEDS: Oxytocin 30 units/NS 500 ml 30 UNITS/500 ML IV.SOLN 334 UNITS IV (09:54)
--- NOTE | 2021-12-01 10:03 | EX.PCM.OBRPT ---
Vaginal Delivery Operative Information Date of Procedure: 12/01/21 Pre-Operative Diagnosis: [place] intrauterine Post-Operative Diagnosis: [place] intrauterine Surgery / Procedure Performed: Spontaneous Vaginal Delivery Type of Anesthesia: None Estimated Blood Loss: 300cc Findings Description of Procedure: Spontaneous vaginal delivery viable infant male. Nuchal cord x1, loose, delivered through. Baby to mom. Cord clamped and cut. Spontaneous delivery of placenta. Perineum injected with lidocaine. Second-degree laceration repaired in usual fashion, hemostatic. Infant A Gender: Male
[2021-12-01] MEDS: Lidocaine 1% (20 ml mdv) 20 ML Vial INFILT (11:06)
[2021-12-01] MEDS: Acetaminophen 500 MG Tablet 1000 MG PO (16:32)
[2021-12-02 00:01] VITALS: BP 116/66; PULSE 93; RESP 16; TEMP 36.3
[2021-12-02 03:03] VITALS: BP 118/62; PULSE 90
[2021-12-02 03:24] VITALS: BP 118/62; PULSE 90; RESP 16; TEMP 36.2
--- NOTE | 2021-12-02 05:17 | PCM.PN.OB ---
Subjective Subjective day 1. Feeling well. Sore. Breast-feeding going well. Lochia minimal. Objective Data Objective Data Vital Signs: Vital Signs Temp Pulse Resp BP Pulse Ox O2 Del Method 97.1 F L 90 16 118/62 99 Room Air 12/02/21 03:24 12/02/21 03:24 12/02/21 03:24 12/02/21 03:24 12/01/21 16:00 12/02/21 03:24 Oxygen Delivery Method Room Air Weight: 71 kg Body Mass Index (BMI) 29.5 Intake & Output: Intake and Output for Last 24 Hours 11/30/21 12/01/21 12/02/21 23:59 23:59 23:59 Intake Total 500 / 500 Output Total 950 / 950 Balance -450 / -450 Lab / Micro Data Result Diagrams: 12/01/21 05:33 Labs: Laboratory Results - last 24 hr 12/01/21 05:33: WBC 10.2, RBC 4.23, Hgb 11.7 L, Hct 35.7 L, MCV 84.4, MCH 27.7, MCHC 32.8, RDW Std Deviation 43.0, RDW Coeff of [place] 13.8, Plt Count 185, MPV 12.2 H, Immature Gran % (Auto) 0.300, Neut % (Auto) 69.0, Lymph % (Auto) 23.9, [place] % (Auto) 5.5, Eos % (Auto) 0.9, Baso % (Auto) 0.4, Absolute Neuts (auto) 7.0, Absolute Lymphs (auto) 2.43, Nucleated RBC % 0 12/01/21 05:33: Blood Type A POSITIVE, Antibody Screen NEGATIVE Micro: Microbiology 12/01/21 05:37 Nasal Secretion SARS-CoV-2 Antigen (Rapid) - Final Physical Exam Const alert, oriented x3 and no apparent distress HEENT normocephalic Head and Scalp: atraumatic Neck full ROM Resp normal respiratory effort Cardio regular rate GI normal to inspection, nondistended, normoactive bowel sounds GI Narrative: Uterus 2 cm below umbilicus Back/Spine normal ROM Extremity normal to inspection Extremity Narrative: Minimal pedal edema Neuro no focal motor deficits and no sensory deficits noted Psych mental status grossly normal and affect normal Assessment & Plan (1) Vaginal delivery: PLAN: day 1 status post . Breast-feeding. Home today.
--- NOTE | 2021-12-02 05:18 | DCINST_ITS ---
Discharge Instructions Diet Discharge Diet: No restrictions Activity Discharge Activity: Return to Normal Activity and May Shower May resume sexual activity in: 4-6 weeks Weight Bearing Status: Weight bearing as tolerated Lifting Restrictions: No greater than 25 pounds Dressing / Incision Call your doctor if you observe: Fever of 101 or Higher, Change in Color, Inability to urinate, Using more than 1 pad per hour, Shortness of breath, Dizziness, Swelling in the ankles, Chest pain and Calf discomfort Follow Up Care Please Follow Up With: Bud Bond MD When: 4 to 6-week visit Test Results: Test results from this visit will be discussed in further detail at your follow- up appointment, if applicable. Discharge Plan Admission Admit Date/Time: 12/01/21 05:25 Primary Reason for Your Visit: Vaginal Delivery Attending Provider: Usha Sneed Primary Care Provider: Chris Smith Discharge Orders/Prescriptions Prescriptions: No Action Vitamin Tablet 1 tab PO DAILY Referrals / Follow Up: Chris Smith DO [Primary Care Provider] - Disposition Disposition (needs filled in before D/C Order can be placed): Home, Self Care
[2021-12-02 07:58] VITALS: BP 116/68; PULSE 85; RESP 18; TEMP 36.7
[2021-12-02 08:00] VITALS: BP 119/68; PULSE 85
--- NOTE | 2021-12-02 08:05 | NURSING ---
pt instructed to void after she is done nursing
[2021-12-02 11:08] VITALS: BP 115/58; PULSE 84; RESP 18; TEMP 36.4; O2SAT 98
--- NOTE | 2021-12-02 14:44 | CASEMGMT ---
Social Work Assessment Labor and Delivery Unit Patient Address: [address] [place] [address] , [place] [address] Phone number: [phone] Date of Referral: 12/01/2021 Time of Referral: 1813 Referred By: Dr. Shanique Bond Date of Intervention: 12/02/2021 Time of Intervention: Approximately 1300 Reason for Referral: Maternal history of depression History obtained from: Medical records and mother of baby (MOB) Usha Shaver; father of baby (FOB) Charles Shaver present for part of conversation. Household composition: MOB, FOB, and 2 older children. will reside in this home as well. Home situation is reportedly safe and adequate. Patient's parent/guardian status: BARBARA is a 28-year-old female, to the FO for the last 3 years. MOB and FOB now have 3 children together 1 adopted and 2 biological. Oleg, who is now 3, was a kinship placement which transition to private adoption.. Biological children that include: Martha (10/12/2020) and baby boy Justyn (born 12/01/2020). MOB denies any form of abuse, control or intimidation and relationship with the FOB. Medical History: BARBARA is 2, para 1 now 2 after delivering baby boy Justyn. care started around 13 weeks. Justyn's weight 7 pounds 8 ounces. Apgars 8 and 9 at 1 and 5 minutes of life respectively. control plans-FOB did get a vasectomy 1 week prior to MOB finding out about this with Justyn. Educational Status: MOB reports to have a masters degree in higher education with a focus on counseling. No concerns with reading, writing, or learning comprehension. Financial Status: Both BARBARA and FOEric works for [employer] businesses. No reported concerns with finances. Supplies: MOB reports to have all necessary infant supplies including safe sleep sleep space for the baby. Car seat in place. Childcare/Caregiver(s): MOB and FOB. MOB has babysitters from family when MOB returns back to work 2 days a week. Transportation: No reported concerns Programs/Agencies Involved: None reported. Children Services/Legal Issues: None. Behavioral Health Issues: Mental Health History: MOB reports depression during teen years and during college. MOB reports since college has had bad days but denies feeling as though has dealt with an actual depression. Prior social work assessment indicates the MOB had informal counseling during her masters program. [place] depression screen this date was a score of 3, well below the threshold for current symptoms of depression or anxiety. MOB denied any type of suicidal ideations during this but admits to history of suicidal ideations with the last time being when was 5 months with Martha. MOB denies there are any type of attempts at that time or during teen/college years, however did start thinking about methods, which led to MOB speaking with the FOB about her thoughts. MOB reports we worked through it, and denies any SI since 5 months with Martha. MOB reports to keep busy, spend time outside on a [place] property, have fun with her kids, and take breaks once a week for a couple of hours as things which are helpful to the MOB's emotional health. Substance Use History: Denies Drug Screens: None noted in chart. Family/Social Stressors: Unplanned though accepted. Closely spaced pregnancies. Support Systems: MOB reports to have good support from the FOB, FOB's family who lives on the same property, and the MOB's parents who live 9 minutes away. FOB will be taking at least 1 week off of work to help with the transition home. ASSESSMENT: Met with MOB and FOB together, introducing to self and social work role. Met with MOB privately for completion of [place] depression screening and screening for DV/IPV. MOB and FOB reported to have necessary supplies to care for the , a support system in place to help when needed, and no indicated concerns about meeting basic needs. When asked about depression after Martha, MOB discussed that by Thursday would feel stressed out with the FOB being away at work for most of the week. MOB reports she addressed these feelings of stress by taking a couple of hours by herself every Thursday while the FOB watched the children. Denies any diagnosis of depression, nor any counseling or medication. MOB reports has been considering counseling recently, just to have somebody to talk to and validate feelings. MOB reports however, belief that she is gotten better talking about her feelings and thoughts with the FOB. Educated to mood and anxiety disorders, increased risk with history of depression and anxiety, and that depression can happen up to 1 year . Introduced the idea that fathers can also get depression. MOB acknowledges that she and the FOB have gone through a lot of life changes in the short amount of time adopting 1 child and birthing 2 children in the last 3 years. Supportive listening provided and validation that counseling can be a great support and outlet for thoughts and feelings. Encouraged MOB that if depressive symptoms arise and become distressing it is important to seek out additional support including should MOB start having any thoughts of suicide again in the future. MOB reports that Hope keeps MOB going, and has prevented MOB from acting on suicidal thoughts in the past (again denies any thoughts during this or since .). MOB reports she has been able to understand and remember that thoughts and feelings are temporary and that things can get better. Provided MOB with packet on mood and anxiety disorders, resources, crisis hotlines, and a list of counseling agencies. MOB accepted resources and indicated strong consideration to establish with a counselor. Infant slept in the bedside crib during social work assessment. Nursing reports no concerns regarding parent-child interactions or bonding. PLAN: MOB and will discharge home with support from family. Resources provided for home-going related to mood and anxiety disorders. -ESTRELLA Holm MSW *This note was generated with JumpCam dictation software. It may contain incorrect words, spelling, and punctuation that were not noted in review of the chart prior to signing*
== END 2021-12-02 13:35 | disposition home or self-care (01) | DRG 807 ==
LOC: WPOUT 05:26 → WP 05:26
PROVIDERS: Admitting Provider Student in an Organized Health Care Education/Training Program; PCP Family Medicine; Visit Provider Obstetrics & Gynecology
DX: O69.81X0 Labor and delivery complicated by cord around neck, without compression, not applicable or unspecified (principal); Z37.0 Single live birth; O70.1 Second degree perineal laceration during delivery; Z3A.40 40 weeks gestation of pregnancy
CPT/HCPCS: 59025; 59050; 84112; 85025; 86850; 86900; 86901; 87426; 99218; A4216; G0378

== ENCOUNTER 2022-02-25 17:12 | Emergency (ER) | payer OTHER, SELFPAY ==
[2022-02-25 17:13] VITALS: BP 111/70; PULSE 93; RESP 16; TEMP 36.2; O2SAT 98; BMI 25.1
--- NOTE | 2022-02-25 17:42 | EKG12_ITS ---
Test Reason : CP Blood Pressure : / mmHG Vent. Rate : 086 BPM Atrial Rate : 086 BPM P-R Int : 166 ms QRS Dur : 072 ms QT Int : 370 ms P-R-T Axes : 069 070 052 degrees QTc Int : 442 ms Normal sinus rhythm Normal ECG Confirmed by MARQUISE CROOKS, SUKI ([id number]), acquisitions editor DANNI PERES ([id number]) on 02/27/2022 9:40:50 AM Referred By: RUDDY Confirmed By:SUKI CAMARILLO MD
--- NOTE | 2022-02-25 18:05 | RAD_ITS ---
EXAM: XR CHEST, 1 VIEW CLINICAL INDICATION: chest pain TECHNIQUE: Frontal view of the chest. This report was created using Power[employer] report generation technology. COMPARISON: None. FINDINGS: LUNGS AND PLEURAL SPACES: Unremarkable. No consolidation or edema. No pneumothorax. No effusion. HEART: Unremarkable. Cardiac silhouette not enlarged. MEDIASTINUM: Central airways and mediastinal contour are unremarkable. BONES/JOINTS: Unremarkable. SOFT TISSUES: Unremarkable. RAD/Chest 1 View (Portable) IMPRESSION: No radiographic evidence of acute cardiopulmonary disease. Electronically Signed: Gage Hayward MD at 18:23 EST ,
[2022-02-25 18:09] LABS: Absolute Lymphocyte Count 2.52 X10^3/uL (0.83-4.51); Absolute Neutrophil Count 7.5 X10^3/uL (2.0-7.7); Basophil# 0.07 X10^3/uL; Basophil% 0.6 % (0-1); Eosinophil# 0.45 X10^3/uL; Hemoglobin 12.4 g/dL (12.0-15.0); Lymphocyte # 2.52 X10^3/ul (0.83-4.51); Lymphocyte % 22.5 % (19-41); Mean Corpuscular Hgb 26.4 pg (27.0-32.0); Mean Corpuscular Volume 85.1 fL (81-99); Mean Platelet Vol. 10.7 fl (6.2-12.0); Monocyte# 0.63 X10^3/uL; Monocyte% 5.6 % (0-10); NRBC Flagged by Analyzer 0 % (0-5); Neutrophil # 7.48 X10^3/uL (2.7-7.7); Platelet Count 324 K/mm3 (150-450); RBC Distribution Width CV 14.3 % (11.6-14.6); White Blood Count 11.2 K/mm3 (4.4-11.0)
[2022-02-25 18:27] LABS: Anion Gap 4 (5-15); BUN 17 mg/dL (7-18); BUN/Creat Ratio 21.4 RATIO (10-20); Chloride 106 mmol/L (98-107); Creatinine, Serum 0.79 mg/dL (0.55-1.02); EST Glomerular Filtration Rate 91 mL/min (>60); Est Glom Filt Rate - Afr Amer 111 mL/min (>60); Glucose 95 mg/dL (74-106); Potassium 3.6 mmol/L (3.5-5.1); Sodium Level 137 mmol/L (136-145); Troponin-I HS < 3 pg/mL (3.0-54.0)
[2022-02-25 20:22] VITALS: BP 108/57; PULSE 86; RESP 16; O2SAT 95
--- NOTE | 2022-02-25 20:24 | EDS_ITS ---
HPI History of Present Illness Chief Complaint: Chest Pain Informant: patient Onset/Context/Timing Onset: Yesterday Activity at onset: sudden Timing: Continuous Quality: Positive for Aching, Sharp and Tightness Location: Left Chest Worsened By: - (Certain movements) Relieved By: - (Certain movements) Associated Symptoms: Positive for Cough; Negative for Nausea, Vomiting, Diaphoresis, Dyspnea, Fever, Lightheadedness, Acid Reflux or Palpitations Narrative Narrative: Presents with chest pain that began yesterday. Patient states it began rather suddenly. Patient describes it as sharp, aching, and tightness. Patient states it is over the left lower chest. Patient states it is worse with certain movements and better with certain movements. Patient admits to a mild cough. Patient denies any sputum production. Patient denies any fevers or chills. Patient denies any nausea or vomiting. Patient denies any shortness of breath or diaphoresis. Patient denies any cardiac or PE risk factors. CVD Risk Factors: Negative for Hypertension, Diabetes, Hypercholesterolemia, Family History 1' </=55 or Smoking PE Risk Factors: Negative for Recent Travel/Surgery, Recent Immobilization, Prior DVT or PE, Cancer or OCP + Smoking + >/=35 PFSH PFSH Medical History Depression Vaginal delivery Medical History no medical history Home Medications prenat.vits,waldemar,swt-pvmb-tlpfl 1 tab PO DAILY Check with primary doctor 10/12/20 [History Last Taken 11/27/21 10:00] Allergy/AdvReac Type Severity Reaction Status Date / Time amoxicillin Allergy Rash Verified 12/01/21 04:19 azithromycin [From Zithromax] Allergy Rash Verified 12/01/21 04:19 Penicillins Allergy Rash Verified 12/01/21 04:19 Family History Father Skin cancer Mother Skin cancer Surgical History [place] teeth removed Social History Smoking Status: Never smoker ROS ROS ED Constitutional Constitutional ED: Denies chills or fever(s) Eyes Eyes: Denies blurry vision or change in vision ENT ENT ED: Reports sore throat; Denies rhinorrhea Cardiovascular Cardiovascular: Reports chest pain; Denies palpitations Respiratory/Chest Respiratory/Chest: Reports cough; Denies dyspnea Gastrointestinal Gastrointestinal: Denies nausea or vomiting Genitourinary Genitourinary ED: Denies dysuria or hematuria Musculoskeletal Musculoskeletal: Denies back pain or neck pain Integumentary Denies abscess or rash Neurologic Neurologic: Denies headache(s) or weakness Allergic/Immunologic Allergic/Immunologic ED: Denies mouth swelling or urticaria EXAM Physical Exam Const Vital Signs: 02/25/22 17:13 02/25/22 20:20 02/25/22 20:22 Temperature 97.1 F L Temperature Source Temporal Pulse Rate 93 86 Respiratory Rate 16 16 Respiratory Effort Blood Pressure 111/70 108/57 L Blood Pressure Mean 83 74 Pulse Ox 98 95 Oxygen Delivery Method Room Air Room Air Room Air 02/25/22 20:22 Temperature Temperature Source Pulse Rate Respiratory Rate Respiratory Effort Normal Non-Labored Blood Pressure Blood Pressure Mean Pulse Ox Oxygen Delivery Method Positive well nourished and well developed General Appearance ED: well developed and NAD HEENT normocephalic and atraumatic Eyes PERRL and EOMs intact bilaterally Neck supple and no JVD Chest Wall Chest: tenderness costal cartilage left Resp normal respiratory effort and clear to auscultation bilaterally Effort and Inspection: Negative for respiratory distress Cardio regular rate, regular rhythm and no murmurs GI normal to inspection, nondistended, normoactive bowel sounds, soft to palpation, non-tender and non-distended Extremity normal to inspection General Extremety ED: Negative for edema or tenderness General Extremity: Negative for edema Neuro oriented x3, CN's II-XII intact bilaterally and no sensory deficits noted Sensorium / Orientation: awake and alert Motor Exam: strength 5/5 throughout Psych mental status grossly normal Heart Score History: Slightly/Non-Suspicious ECG: Normal Age: </= 45 years Risk Factors: No Risk Factors Troponin: </= Normal Limit Score: 0 MDM MDM MDM Narrative Medical decision making narrative: EKG was obtained. On my interpretation, it shows normal sinus rhythm with a rate of 86. DE interval, QRS interval, and QTc intervals were within normal limits. [place] is normal. There are no acute ST or T wave changes. CBC showed a mild leukocytosis of 11.2. Basic metabolic profile was within normal limits. High-sensitivity troponin was less than 3. Portable 1 view chest x-ray was obtained. On my interpretation, lung morel are clear. There is normal cardiac silhouette. Bony thorax is normal. There is no acute process noted. Radiologist also interpreted the x-ray and agrees. Patient had reproducible tenderness over the left costal margin. Patient has a HEART score of 0. Patient was advised that this is low risk for acute cardiac event. Patient was instructed to take Tylenol or ibuprofen as needed for any pain. Patient was instructed to use ice to the area. Patient was instructed to follow-up with her primary care physician in 5 to 7 days. Patient understood and was agreeable with the plan. All questions were answered. Lab Data Attestation: I reviewed the patient's lab results. Labs: Laboratory Results - last 24 hr 02/25/22 02/25/22 17:56 17:56 WBC 11.2 H RBC 4.70 Hgb 12.4 Hct 40.0 MCV 85.1 MCH 26.4 L MCHC 31.0 L RDW Std Deviation 44.0 H RDW Coeff of [place] 14.3 Plt Count 324 MPV 10.7 Immature Gran % (Auto) 0.300 Neut % (Auto) 67.0 Lymph % (Auto) 22.5 [place] % (Auto) 5.6 Eos % (Auto) 4.0 Baso % (Auto) 0.6 Absolute Neuts (auto) 7.5 Absolute Lymphs (auto) 2.52 Nucleated RBC % 0 Sodium 137 Potassium 3.6 Chloride 106 Carbon Dioxide 27.0 Anion Gap 4 L BUN 17 Creatinine 0.79 Estim Creat Clear Calc 80.00 Est GFR (MDRD) Af Amer 111 Est GFR (MDRD) Non-Af 91 BUN/Creatinine Ratio 21.4 H Glucose 95 Calcium 9.0 Troponin I High Sens < 3 L Radiography Chest X-Ray - ED: 1 View, Read by ED Physician, Read by Radiologist and No Acute Disease Diagnostic Testing: Clinical Impression(s) from Imaging Studies Chest X-Ray 02/25/22 18:05 IMPRESSION: No radiographic evidence of acute cardiopulmonary disease. Electronically Signed: Gage Hayward MD at 18:23 EST , EKG Initial EKG: Attestation: I personally reviewed and interpreted this EKG as follows: Interpretation: Sinus Rhythm (86) and No Acute Injury Pattern Discharge Plan Triage Chief Complaint: Chest Pain ED Provider: Fred Frye Dx/Rx/DC Orders Clinical Impression: Chest pain Instructions: ED Chest Pain, Noncardiac, ED Chest Wall Pain, Costochondritis Prescriptions: No Action Vitamin Tablet 1 tab PO DAILY Primary Care Provider: Chris Smith Referrals: Chris Smith, [Primary Care Provider] - 5-7 Days Disposition Disposition: Home, Self Care
== END 2022-02-25 20:36 | disposition home or self-care (01) ==
PROVIDERS: Emergency Provider Emergency Medicine; PCP Family Medicine; Visit Provider Emergency Medicine
DX: R07.9 Chest pain, unspecified (principal)
CPT/HCPCS: 71045; 80048; 84484; 85025; 93005; 99284; A4216